=== PATIENT | male | born 1995 | race American Indian/Alaskan Native ===

== ENCOUNTER 2022-04-04 19:27 | Emergency (ER) | payer SELFPAY ==
[2022-04-04] MEDS ORDERED: levETIRAcetam 1000 MG/NS 0.75% 1,000 MG/100 ML BAG IV ONE (20:57)
--- NOTE | 2022-04-04 22:46 | Emergency Department Report ---
ED Seizure HPI - General Chief Complaint: Seizure Stated Complaint: CVA/SEIZURE Time Seen by Provider: 04/04/22 20:57 Source: patient, EMS Mode of arrival: Ambulatory Limitations: No Limitations - History of Present Illness Initial Comments: Patient is 27-year-old male with history of seizures brought presenting with complaint of seizure. States he takes Trileptal however has not taken it since November. Last seizure was in November per patient. States he just has not gotten around to refilling his medication. - Related Data Allergies Allergy/AdvReac Type Severity Reaction Status Date / Time No Known Allergies Allergy Unverified 04/04/22 20:10 ED Review of Systems ROS: Stated complaint: CVA/SEIZURE Other details as noted in HPI Comment: All other systems reviewed and negative Constitutional: denies: chills, fever Respiratory: denies: cough, shortness of breath, wheezing Cardiovascular: denies: chest pain, palpitations Gastrointestinal: denies: abdominal pain, nausea, diarrhea Genitourinary: denies: urgency, dysuria Musculoskeletal: denies: back pain, joint swelling, arthralgia Skin: denies: rash, lesions Neurological: denies: headache, weakness, paresthesias Psychiatric: denies: anxiety, depression ED Physical Exam - General Limitations: No Limitations General appearance: alert, in no apparent distress - Head Head exam: Present: atraumatic, normocephalic - Eye Eye exam: Present: normal appearance - Respiratory Respiratory exam: Present: normal lung sounds bilaterally. Absent: respiratory distress - Cardiovascular Cardiovascular Exam: Present: regular rate, normal rhythm, normal heart sounds - GI/Abdominal GI/Abdominal exam: Present: soft. Absent: distended, tenderness - Neurological Exam Neurological exam: Present: alert, oriented X3, CN II-XII intact - Psychiatric Psychiatric exam: Present: normal affect, normal mood - Skin Skin exam: Present: warm, dry, intact, normal color ED Course Vital Signs 04/04/22 04/04/22 22:31 22:50 Temperature 98.2 F Pulse Rate 57 L Respiratory 20 Rate Blood Pressure 114/69 [Left] O2 Sat by Pulse 98 100 Oximetry ED Medical Decision Making - Medical Decision Making Patient presenting with complaint of seizure likely secondary to noncompliance with his medications. He was offered IV Keppra as well as his home Trileptal dose however declined to take medications. He is otherwise stable for discharge. Critical care attestation.: If time is entered above; I have spent that time in minutes in the direct care of this critically ill patient, excluding procedure time. ED Disposition Clinical Impression: Seizure Disposition: 01 HOME / SELF CARE / HOMELESS Is pt being admited?: No Condition: Stable Instructions: Seizure, Adult, [id number] Additional Instructions: Please take your seizure medication as prescribed. Referrals: SAVANNA FATIMA MD [Primary Care Provider] - 3-5 Days
[2022-04-04 22:51] VITALS: BP 114/69
== END 2022-04-05 00:10 | disposition home or self-care (01) ==
LOC: ED 19:27
DX: R56.9 Unspecified convulsions (principal)
CPT/HCPCS: 99283; J1953